=== PATIENT | male | born 1940 | race Caucasian/White ===

== ENCOUNTER → 2016-08-10 | Outpatient (CLI) | payer MEDICARE ==
[~2016-08-10] MED LIST: ACET500C9 PO; ALBU.5I INH; ALBU.5I NEB; ALLE60TA PO; ALPH0.1S EACH EYE; AMBI5TAB PO; AMLO10 PO; ANUCORT-HC PR; ASPI81TA11 PO; ASTE137S5; AZEL1SPR2 EACH NARE; B CO1CAP2 PO; B COTAB3 PO; B-50TAB4 PO; BRIM.2%O EACH EYE; BUPR150T12 PO; BUPR150T3 PO; C 50TAB PO; CARD4TAB2 PO; CHOLESTOFF PO; COQ-50CA2 PO; CYAN100025 SL; CYAN25005 PO; DEPOTESTOSTERONE; EMOLCRE PO; FEXO60TA PO; FISH100020 PO; FLUN25I; FLUN25I EACH NARE; FORACAP INH; FORM20NE INH; GARL500C PO; GINKO BILOBA PO; GLUC500C36 PO; GLUC500C56 PO; LACT1CAP20 PO; LECIGRA PO; LUTE6CAP2 PO; LUTE6CAP7 PO; MELO-1 PO; MOME1AER2 INH; MOME1AER3 INH; MONT10TA2 PO; MULT-142 PO; NIAC500T5 PO; NIAS10004 PO; OLOP.1%O EACH EYE; OLOP.1%O OU; OMEG1CAP53 PO; OMEP20CA5 PO; OMEP20TA PO; OS-CTAB3 PO; PRAM1AER PR; PRAM1AER8 TOPICAL; PROBCAP11 PO; PROS5TAB PO; PROS5TAB2 PO; SELE1TAB PO; SELENIUM PO; SENIOR VITAMIN PO; SERT100 PO; SPIRCAP INH; TRAV0.00 EACH EYE; VENTAER INH; VITA100017 PO; VITA10002 PO; VITA200C3 PO; VITA400C70 PO; ZINC220 PO; ZINC220T PO; ZINC50TA2 PO; ZOLO100T PO; [UNRECOGNIZED DRUG - OTHER] PO
[2016-08-10 11:01] LABS: HEMATOCRIT 38.5 % (39.0-51.0); MEAN CORPUSCULAR HEMOGLOBIN 27.5 PG (27.0-34.0); MEAN CORPUSCULAR HGB CONC 32.3 % (32.0-36.0); PLATELET COUNT 178 TH/MM3 (150-450); RED BLOOD COUNT 4.54 MIL/MM3 (4.50-5.90); REVIEW FLAG FINAL; WHITE BLOOD COUNT 4.5 TH/MM3 (4.0-11.0)
== END ==
LOC: OLAB 10:43
PROVIDERS: ATTEND Urology
DX: E29.1 Testicular hypofunction (principal)
CPT/HCPCS: 36415; 84403; 85027

== ENCOUNTER → 2017-01-05 | Outpatient (CLI) | payer MEDICARE ==
[~2017-01-05] MED LIST changes: -ALBU.5I INH; -ALLE60TA PO; -ALPH0.1S EACH EYE; -AMBI5TAB PO; -ANUCORT-HC PR; -ASTE137S5; -AZEL1SPR2 EACH NARE; -B COTAB3 PO; -BRIM.2%O EACH EYE; -BUPR150T3 PO; -EMOLCRE PO; -FEXO60TA PO; -FLUN25I; -FLUN25I EACH NARE; -FORACAP INH; -FORM20NE INH; -GINKO BILOBA PO; -GLUC500C56 PO; -LECIGRA PO; -LUTE6CAP7 PO; -MOME1AER2 INH; -MOME1AER3 INH; -NIAS10004 PO; -OLOP.1%O EACH EYE; -OLOP.1%O OU; -OMEG1CAP53 PO; -OMEP20CA5 PO; -PRAM1AER PR; -PRAM1AER8 TOPICAL; -PROBCAP11 PO; -PROS5TAB2 PO; -SELENIUM PO; -SENIOR VITAMIN PO; -SERT100 PO; -VITA100017 PO; -VITA10002 PO; -VITA400C70 PO; -ZINC220 PO; -ZINC220T PO
[2017-01-05 11:39] LABS: AUTOMATED NEUTROPHIL # 3.3 TH/MM3 (1.8-7.7); BASOPHIL % 0.4 % (0.0-2.0); EOSINOPHIL # 0.2 TH/MM3 (0-0.4); EOSINOPHIL % 4.2 % (0.0-4.0); HEMATOCRIT 35.5 % (39.0-51.0); HEMO FLAGS DIFF FINAL; LYMPH % 27.8 % (9.0-44.0); LYMPHOCYTE # 1.6 TH/MM3 (1.0-4.8); MEAN CELL VOLUME 83.7 FL (80.0-100.0); MEAN CORPUSCULAR HEMOGLOBIN 28.5 PG (27.0-34.0); MEAN CORPUSCULAR HGB CONC 34.1 % (32.0-36.0); MONO % 10.1 % (0.0-8.0); NEUT % 57.5 % (16.0-70.0); PLATELET COUNT 240 TH/MM3 (150-450); RED BLOOD COUNT 4.24 MIL/MM3 (4.50-5.90); RED CELL DISTRIBUTION WIDTH 14.9 % (11.6-17.2); WHITE BLOOD COUNT 5.7 TH/MM3 (4.0-11.0)
[2017-01-05 17:03] LABS: HEMOGLOBIN A1a 1.2 %; HEMOGLOBIN Ao 83.9 %; HEMOGLOBIN F 1.1 %; HEMOGLOBIN LA1C 2.3 %; HEMOGLOBIN P3 4.2 %
== END ==
LOC: OLAB 11:18
PROVIDERS: ATTEND Internal Medicine
DX: R73.01 Impaired fasting glucose (principal); I10 Essential (primary) hypertension
CPT/HCPCS: 36415; 83036; 85025

== ENCOUNTER → 2017-05-04 | Day surgery (SDC) | payer MEDICARE ==
[~2017-05-04] MED LIST changes: -ASPI81TA11 PO; +ASPI81TA23 PO; +BUPIVACAINE HCL PF 0.75% 30 ML VIAL ONE; -MELO-1 PO; +MELO15TA20 PO; -OMEP20TA PO; +OMEP20TA93 PO; +PROPOFOL 200 MG/20 ML AMP IV ONE; -SELE1TAB PO; +SELE200T17 PO; +TRIAMCINOLONE ACETONIDE 40 MG/ML VIAL I-ARTICULR ONE
--- NOTE | 2017-05-06 13:36 | M6 ---
cc: Kirill EDMONDS DATE 05/04/2017 DATE OF 1940 PROCEDURE Fluoroscopically guided injection bilateral lumbar facet joints (bilateral L3-4, L4-5 and L5-S1 facet joints). PROCEDURE NOTE History and physical was completed and signed. Consent was signed. Procedure site was marked. Medications were listed and reconciled. Pain score was recorded. Allergies were noted. Time out was taken. Fluoroscopy time was recorded where applicable. Sedation was administered or directed by Dr. Edmonds. The patient was given oxygen. The patient was monitored by a registered nurse. Total procedure time was greater than 15 minutes. IV was started, blood pressure cuff, pulse oximeter and EKG were applied. The patient was placed in the prone position on a Mahamed table, sedated with small amounts of propofol titrated to effect. Vital signs were monitored and remained stable throughout the procedure. The lumbar area was prepped with alcohol and 10% Betadine solution and draped with sterile drapes. Fluoroscopy was used in a Eliceo dog view to clearly visualize the bilateral lumbar facet joints at L3-4, L4-5 and L5-S1. Separate sterile 3-1/2-inch 25-gauge spinal needles were advanced into these joints under fluoroscopic guidance. There was negative aspiration for blood or any other type of fluid and at each location the patient was given 1 mL of Marcaine 0.75% which contained 10 mg of Kenalog. Following the procedure, the patient was taken to the recovery room with stable vital signs neurologically intact. He will be evaluated immediately and with followup to determine if he has a subjective decrease in his usual pain and a corresponding objective increase in his functional capabilities. MD MIAH Collins/MORRIS /10:01 AM /1:16 PM
== END | disposition home or self-care (01) ==
LOC: PHSDC 08:21
PROVIDERS: ATTEND Pain Medicine Interventional Pain Medicine
DX: M54.5 Low back pain (principal)
CPT/HCPCS: 64493; 64494; 64495; 99152; J3301

== ENCOUNTER → 2017-09-29 | Outpatient (CLI) | payer MEDICARE ==
[~2017-09-29] MED LIST changes: -BUPIVACAINE HCL PF 0.75% 30 ML VIAL ONE; -PROPOFOL 200 MG/20 ML AMP IV ONE; -TRIAMCINOLONE ACETONIDE 40 MG/ML VIAL I-ARTICULR ONE
[2017-09-29 16:48] LABS: ALBUMIN 3.8 GM/DL (3.4-5.0); ALT (GPT) 35 U/L (12-78); AST (GOT) 24 U/L (15-37); BICARBONATE 24.6 MEQ/L (21.0-32.0); BLOOD UREA NITROGEN 21 MG/DL (7-18); CALCIUM 8.9 MG/DL (8.5-10.1); CHLORIDE 108 MEQ/L (98-107); CREATININE 1.13 MG/DL (0.60-1.30); GLOMERULAR FILTRATION RATE 63 ML/MIN (>89); SODIUM (NA) 141 MEQ/L (136-145)
[2017-09-29 16:51] LABS: ALKALINE PHOSPHATASE 65 U/L (45-117); GLUCOSE,FASTING 97 MG/DL (74-99); TOTAL BILIRUBIN ADULT 0.9 MG/DL (0.2-1.0); TOTAL PROTEIN 7.7 GM/DL (6.4-8.2)
== END ==
LOC: OLAB 10:30
PROVIDERS: ATTEND Internal Medicine
DX: R10.9 Unspecified abdominal pain (principal)
CPT/HCPCS: 36415; 80053